=== PATIENT | male | born 1950 | race Caucasian/White ===

== ENCOUNTER 2019-12-06 07:24 | Outpatient (CLI) | payer MEDICARE, OTHER ==
[~2019-12-06] VITALS: Ht 182.9 cm; Wt 100.0 kg
[2019-12-06 07:43] LABS: BASOPHILS 0.5 % (0-2); EOSINOPHILS 11.1 % (0-7); HEMATOCRIT 44.8 % (42.0-54.0); HEMOGLOBIN 14.3 g/dL (13.5-17.5); IMMATURE GRANULOCYTES 0.3 % (0-5); LYMPHOCYTES 22.4 % (15-50); MCH 28.9 pg (26.0-34.0); MCHC 31.9 g/dL (31.0-37.0); MCV 90.5 fL (80.0-100.0); MEAN PLATELET VOLUME 11.5 fL (7.4-10.4); MONOCYTES 11.1 % (2-11); NEUTROPHILS 54.6 % (40-80); PLATELET COUNT 186 10x3/uL (130-400); RBC 4.95 10x6/uL (4.20-6.10); RDW 13.3 % (11.5-14.5); WBC 7.4 10x3/uL (4.8-10.8)
[2019-12-06 07:51] LABS: INR 0.99 (0.85-1.17); PROTIME 13.1 SECONDS (11.6-15.0)
[2019-12-06 07:52] LABS: APTT 30.9 SECONDS (22.8-39.4)
[2019-12-06 08:10] LABS: ALBUMIN 3.8 g/dL (3.4-5.0); ALKALINE PHOSPHATASE 87 U/L (30-120); ALT (SGPT) 32 U/L (10-68); BILIRUBIN - TOTAL 0.31 mg/dL (0.2-1.3); CALC OSMOLALITY 288 mosm/kg (275-300); CALCIUM 9.1 mg/dL (8.5-10.1); CARBON DIOXIDE 27.6 mmol/L (21.0-32.0); CHLORIDE - SERUM 108 mmol/L (98-107); CREATININE - SERUM 0.8 mg/dL (0.6-1.3); GLUCOSE 94 mg/dL (74-106); POTASSIUM - SERUM 4.3 mmol/L (3.5-5.1); PROTEIN - SERUM 7.5 g/dL (6.4-8.2); SODIUM 143 mmol/L (136-145); UREA NITROGEN 25 mg/dL (7-18); eGFR NON AFRICAN AMERICAN > 90 mL/min (90-120)
[2019-12-06 08:53] VITALS: BP 135/72; Ht 182.9 cm; Wt 100.0 kg
[2019-12-06] MEDS ORDERED: LIPITOR20 MG PO (10:04)
[2019-12-06] MEDS ORDERED: LISINOPRIL20 MG PO (10:04)
--- NOTE | 2019-12-06 11:55 | NUR ---
1152-REC'D FROM CT-AWAKE AND ALERT,VSS, DENIES PAIN. REVIEWED DISCHARGE CRITERIA. CL IN EASY REACH. DRESSING CDI
--- NOTE | 2019-12-06 14:06 | NUR ---
1300-CHEST X RAY COMPLETE. DENIES PAIN.VSS. CL IN EASY REACH
--- NOTE | 2019-12-06 14:07 | NUR ---
1400-FLUSHED PORT WITH 5CC HEPARIN. REMOVED RIVERO NEEDLE. DISPOSED INTO SHARPS. COVERED WITH COTTON BALL,SECURED WITH PAPER TAPE. VERY PLEASANT WITHOUT COMPLAINTS. DISCHARGE ORDERS FOR 1430.
--- NOTE | 2019-12-06 14:31 | NUR ---
1430-DISCHARGE CRITERIA MET. ESCORTED OUT VIA W/C WITH SISTER AWAITING TO DRIVE HOME
== END 2019-12-06 14:30 | disposition home or self-care (01) ==
LOC: D.SP 07:24 → D.CT 10:00 → D.SP 14:30
PROVIDERS: General Practice; ATTEND Internal Medicine Medical Oncology
DX: C18.8 Malignant neoplasm of overlapping sites of colon (principal); D50.9 Iron deficiency anemia, unspecified; I10 Essential (primary) hypertension; E78.5 Hyperlipidemia, unspecified; G57.93 Unspecified mononeuropathy of bilateral lower limbs